=== PATIENT | female | born 1990 | race Caucasian/White ===

== ENCOUNTER 2020-03-14 14:56 | Emergency (ER) | payer BC ==
[~2020-03-14] VITALS: Ht 165.1 cm; Wt 83.9 kg
--- OUTSIDE RECORDS SUMMARY | 2020-03-14 14:58 | XMS REPORT | Summary of Care ---
Author Author [facility] Address [address] [place] [address] Phone Unavailable Care Team Providers Care Trim Crew Supervisor Name Role Phone YOLANDA CHÁVEZ, RONNIE GARCIA Unavailable Unavailable SADE DIAZ MD Unavailable Unavailable YOLANDA Escoto, RONNIE Wilkerson Unavailable Unavailable Unavailable Functional Status Name Dates Details Functional status health issues are not documented Status: Name Dates Details Cognitive status health issues are not d ocumented Status: Problems Name Dates Details Tachycardia (785.0, R00.0) Status: Active Blood in urine (599.70, R31.9) Status: Active Elevated blood pressure reading (796.2, R03.0) Status: Active Obesity (BMI 30-39.9) (278.00, E66.9) Status: Active Medications Name Dates Details Medications not documented Allergies and Adverse Reactions Name Dates Details Gentamicin Sulfate SOLN (Allergy) Status : Active Past Medical History Name Dates Details History of Infection Of A Kidney (590.9) Status: Resolved Personal history of urinary tract infect ion (V13.02, Z87.440) Status: Resolved Procedures Procedure Dates Details [QL] CBC (INCLUDES DIFF/PLT) Date: 10-Mar-2020 [QL] CMP W/EGFR Date: 10-Mar-2020 [QL] URINALYSIS, COMPLETE W/REFLEX TO CULTURE Date: 020 CT Abdomen/Pelvis w contrast 37010 Date: 10-Mar-2020 Immunization Name Dates Details Immunizations not documented Social History Name Dates Details - Status: Name Dates Details Never smoked tobacco (finding) Vital Signs Date Test Result Details [id number] Systolic blood pressure 134 mm[Hg] Status: Comments : Location: LUE; Position: Sitting Diastolic blood pressure 88 mm[Hg] Status: Comment s: Location: LUE; Position: Sitting Body height 65 in Status: Weight 188.3125 lb Status: Body mass index (BMI) [Ratio] 31.34 kg/m2 Status: Body surface area Derived from formula 1.93 m2 S tatus: Body temperature 97.8 f Status: Comments: Me thod: Temporal Heart Rate 120 /min Status: Respiratory rate 16 /min Status: Results Date Description Value Details [id number] [O] Urine Dipstick (In Office) Glucose Normal (Normal) LEUKOCYTES + (Abnormal) NITRITE Negative (Normal) UROBILINOGEN Normal (Normal) PROTEIN ++100 (Abnormal) pH 5 (Normal) URINE BLOOD +250 (Abnormal) SPECIFIC GRAVITY 1.025 (Normal) KETONES Negative (Normal) BILIRUBIN Negative (Normal) COLOR URINE Red (Abnormal) APPEARANCE Cloudy (Abnormal) 16-[id number]:01 [O] Urine Test (in office) Test, Urine Negative (Normal ) Plan of Care Name Dates Details Planned Observations Planned Goals not documented Planned Encounters Appointment; SADE DIAZ M.D. On: 25-Mar-2020 14:00 Instructions Name Dates Details Instructions not documented Encounters Appointment; SADE DIAZ M.D. Encounter Diagnosis: Problem not documented On: 10-Mar-2020 14:00
--- OUTSIDE RECORDS SUMMARY | 2020-03-14 14:58 | XMS REPORT | Summary of Care ---
Author Author ARA DIAZ M.D. Organization Unknown Address Unknown Phone Unavailable Care Team Providers Care Casino Cage Supervisor Name Role Phone SADE DIAZ M.D. Unavailable Unavailable RONNIE LUEVANO MD Unavailable Unavailable SADE DIAZ MD Unavailable Unavailable RONNIE GUERRERO M.D. Unavailable Unavailable Unavailable Functional Status Name Dates [...] CULTURE Date: 020 CT Abdomen/Pelvis w contrast 72604 Date: 10-Mar-2020 Immunization Name Dates Details Immunizations not documented Social History Name Dates Details - Status: Name Dates Details Never smoked tobacco (finding) Vital Signs Date Test Result Details [id number] Systolic blood pressure 134 mm[Hg] Status: Comments [...] /min Status: Results Date Description Value Details [id number] [O] Urine Dipstick (In Office) Glucose Normal (Normal) LEUKOCYTES + (Abnormal) NITRITE Negative (Normal) UROBILINOGEN Normal (Normal) PROTEIN ++100 (Abnormal) pH 5 (Normal) URINE BLOOD +250 (Abnormal) SPECIFIC GRAVITY 1.025 (Normal) KETONES Negative (Normal) BILIRUBIN Negative (Normal) COLOR URINE Red (Abnormal) APPEARANCE Cloudy (Abnormal) 77-[id number]:01 [O] Urine Test (in office) Test, Urine Negative (Normal ) Plan of Care Name Dates Details Planned Observations Planned Goals not documented Planned Encounters Appointment; SADE DIAZ M.D. On: 25-Mar-2020 14:00 Interventions Provided Labs/Procedures/Imaging* [QL] CBC (INCLUDES DIFF/PLT); To Be Done: 10 Mar 2020 * [QL] CMP W/EGFR; To Be Done: 10 Mar 2020 * [QL] URINALYSIS, COMPLETE W/REFLEX TO CULTURE; To Be Done: 10 Mar 2020 * CT Abdomen/Pelvis w contrast 15589; To Be Done: 10 Mar 2020 * [O] Urine Test (in office); Done: 10 Mar 2020 * [O] Urine Dipstick (In Office); Done: 10 Mar 2020 * Tobacco Use Screening; Done: 10 Mar 2020 Plan* check cbc, cmp * CT abd and pelvis * ER precautions * Low salt, low fat, high fiber, healthy diet * Monitor blood pressure at home, bring log to next visit * If blood pressure persistently over 140/90 or less then 100/50 or symptomatic, please seek early or ER care * Please seek early care if not getting better or getting worse or new change in condition. * Return to clinic in 2 weeks, sooner if needed * Please seek early care if not getting better or getting worse or new change in condition * Please call us back if you don't hear from the office about your labs, imaging or referral in a week. Instructions Name Dates Details Instructions not documented Encounters Appointment; SADE DIAZ M.D. Encounter Diagnosis: Problem not documented On: 10-Mar-2020 14:00
--- OUTSIDE RECORDS SUMMARY | 2020-03-14 14:58 | XMS REPORT | Summary of Care ---
Author Author [facility] Address [address] [place] [address] Phone Unavailable Care Team Providers Care Clinical Athletic Instructor Name Role Phone YOLANDA CHÁVEZ, RONNIE GARCIA [...] Date: 10-Mar-2020 [QL] CMP W/EGFR Date: 10-Mar-2020 CT Abdomen/Pelvis w contrast [id number] Date: 10-Mar-2020 Immunization Name Dates Details Immunizations not documented Social History Name Dates Details - Status: Name Dates Details Never smoked tobacco (finding) Vital Signs Date Test Result Details [id number] Systolic blood pressure 134 mm[Hg] Status: Comments [...] /min Status: Results Date Description Value Details [id number]:[id number] [O] Urine Dipstick (In Office) Glucose Normal (Normal) LEUKOCYTES + (Abnormal) NITRITE Negative (Normal) UROBILINOGEN Normal (Normal) PROTEIN ++100 (Abnormal) pH 5 (Normal) URINE BLOOD +250 (Abnormal) SPECIFIC GRAVITY 1.025 (Normal) KETONES Negative (Normal) BILIRUBIN Negative (Normal) COLOR URINE Red (Abnormal) APPEARANCE Cloudy (Abnormal) [id number]:01 [O] Urine Test (in office) Test, Urine Negative (Normal ) Plan of Care Name Dates Details Planned Observations Planned Goals not documented Planned Encounters Appointment; SADE DIAZ M.D. On: 25-Mar-2020 14:00 Instructions Name Dates Details Instructions not documented Encounters Appointment; SADE DIAZ M.D. Encounter Diagnosis: Problem not documented On: 10-Mar-2020 14:00
--- OUTSIDE RECORDS SUMMARY | 2020-03-14 14:58 | XMS REPORT | Summary of Care ---
Author Author ARA DIAZ M.D. Organization Unknown Address Unknown Phone Unavailable Care Team Providers Care Teaching Pastor Name Role Phone SADE DIAZ M.D. Unavailable Unavailable YOLANDA DUMONT GA, RONNIE GARCIA Unavailable Unavailable SADE DIAZ MD [...] W/EGFR Date: 10-Mar-2020 CT Abdomen/Pelvis w contrast 39404 Date: 10-Mar-2020 Immunization Name Dates Details Immunizations not documented Social History Name Dates Details - Status: Name Dates Details Never smoked tobacco (finding) Vital Signs Date Test Result Details [id number] Systolic blood pressure 134 mm[Hg] Status: Comments [...] /min Status: Results Date Description Value Details [id number] [O] Urine Dipstick (In Office) Glucose Normal (Normal) LEUKOCYTES + (Abnormal) NITRITE Negative (Normal) UROBILINOGEN Normal (Normal) PROTEIN ++100 (Abnormal) pH 5 (Normal) URINE BLOOD +250 (Abnormal) SPECIFIC GRAVITY 1.025 (Normal) KETONES Negative (Normal) BILIRUBIN Negative (Normal) COLOR URINE Red (Abnormal) APPEARANCE Cloudy (Abnormal) Plan of Care Name Dates Details Planned Observations Planned Goals not documented Planned Encounters Appointment; SADE DIAZ M.D. On: 25-Mar-2020 14:00 Interventions Provided Labs/Procedures/Imaging* [QL] CBC (INCLUDES DIFF/PLT); To Be Done: 10 Mar 2020 * [QL] CMP W/EGFR; To Be Done: 10 Mar 2020 * CT Abdomen/Pelvis w contrast [id number]; To Be Done: 10 Mar 2020 * [...]
--- OUTSIDE RECORDS SUMMARY | 2020-03-14 14:58 | XMS REPORT ---
Author Author [facility] Organization [facility] Address Unknown Phone Unavailable Care Team Providers Care Agricultural Labor Camp Manager Name Role Phone SADE DIAZ M.D. Unavailable Unavailable Problems Condition Name Condition Details Condition Category Status Onset Date Resolution Date Last Treatment Date Treating Clinician Comments History of Infection Of A Kidney History of Infection Of A Kidne y Problem Resolved Personal history of urinary tract infection Personal h istory of urinary tract infection Problem Resolved Tachycardia Tachycardia Problem Active Blood in urine Blood in urine Problem Active Elevated blood pressure reading Elevated blood pressure reading Pro blem Active Obesity (BMI 30-39.9) Obesity (BMI 30-39.9) Problem Active Allergies, Adverse Reactions, Alerts Allergy Name Allergy Type Status Severity Reaction(s) Onset Date Inacti ve Date Treating Clinician Comments Gentamicin Sulfate SOLN Allergy to drug (finding) Active Medications This patient has no known medications. Vital Signs Vital Name Observation Time Observation Value Comments Systolic blood pressure 2020-03-10 14:23:00 134 mm[Hg] Loca tion: LUE; Position: Sitting Diastolic blood pressure 2020-03-10 14:23:00 88 mm[Hg] Loc ation: LUE; Position: Sitting Body height 2020-03-10 14:23:00 65 [in_us] Weight 2020-03-10 14:23:00 188.3125 [lb_av] Body temperature 2020-03-10 14:23:00 97.8 [degF] Method: Tem poral Heart Rate 2020-03-10 14:23:00 120 /min Respiratory rate 2020-03-10 14:23:00 16 /min Procedures and Interventions Procedure Date / Time Performed Performing Clinici an [QL] CBC (INCLUDES DIFF/PLT) 2020-03-10 00:00:00 [QL] CMP W/EGFR 2020-03-10 00:00:00 CT Abdomen/Pelvis w contrast [id number] 2020-03-10 00:00:00 [QL] URINALYSIS, COMPLETE W/REFLEX TO CULTURE 2020-03-10 00: 00:00 Encounters Start Date/Time End Date/Time Encounter Type Admission Type [facility] Care Department Encounter ID 2020-03-10 14:00:00 2020-03-10 14:00:00 Appointment; SADE DIAZ M.D. SATTAR, BEENA, M.D. [facility] [id number] Results Test Description Test Time Test Comments Text Results Atomic Results Result Comments CT Abdomen/Pelvis w contrast [id number] 2020-03-13 12:55:00 Radiation Dose CTDIVOL = 0 (mGy): DLP = 912.5 (mGy-cm)PROCEDURE INFORMATION:Exam: CT Abdomen And Pelvis With ContrastExam date and time: 03/13/2020 1:25 PMAge: 29 years oldClinical indication: Hematuria, unspecified; Additional info: /hematuria, h/[place] renal reflux as a childTECHNIQUE:Imaging protocol: Computed tomography of the abdomen and pelvis withintravenous contrast.Radiation optimization: All CT scans at this facility use at least one of thesedose optimization techniques: automated exposure control; mA and/or kVadjustment per patient size (includes targeted exams where dose is matched toclinical indication); or iterative reconstruction.Contrast material: OMNIPAQUE; Contrast volume: 100 ml; Contrast route: RTFOREARM; COMPARISON:No relevant prior studies available.RADIATION DOSE METRICS:Total DLP: 912.5 mGy-cmFINDINGS:Lungs: There is a 1 cm nodule in the right middle lobe, most likely nodularscarring or atelectasis, however true pulmonary nodule also possible. Thiscould also reflect a small consolidation. Recommend dedicated chest CT.Liver: There is hepatic steatosis.Gallbladder and bile ducts: Normal. No calcified stones. Pancreas: Normal.Spleen: There is a sub 5 mm low-density lesion in the spleen, too small tocharacterize.Adrenals: Normal.Kidneys and ureters: There is an obstructing 4 mm stone in the proximal leftureter. Mild left hydronephrosis. Additional 3 mm nonobstructing right re nalstone.Stomach and bowel: The lack of oral contrast limits assessment of the hollowviscus. No significant small bowel distension. The visualized colon is withinnormal limits.Appendix: No evidence of appendicitis.Intraperitoneal space: Trace amount of free pelvic fluid, presumablyphysiologic.Vasculature: Unremarkable. No abdominal aortic aneurysm.Lymph nodes: Unremarkable. No enlarged lymph nodes.Bladder: Unremarkable as visualized.Reproductive: Unremarkable as visualized.Bones/joints: No acute osseous abnormality.Soft tissues: Unremarkable.IMPRESSION:1. Obstructing 4 mm stone in the proximal left ureter. Mild lefthydronephrosis. Additional non-obstructing 3 mm right renal stone.2. Right middle lobe nodule measures 1 cm, most likely nodular scarring oratelectasis. However, this could also reflect a nodule or small consolidation.Consider dedicated chest CT.Dante Lindsay MD On 03/13/2020 16:36:48; [id number]--Acxy by: Dante Lindsay MDDictated Date/time: 03/13/20 16:36Electronically Signed by: Dante Lindsay MD 03/13/2016:36FINAL REPORT [QL] CMP W/EGFR 2020-03-12 08:44:00 GLUCOSE; Above High Threshold (test code = 1547-9) 101 mg/dl 65-99 Fasting reference interval For someone without known diabetes, a glucose valuebetween 100 and 125 mg/dL is consistent withprediabetes and should be confirmed with afollow-up test. UREA NITROGEN (BUN) (test code = UREA NITROGEN (BUN)) 11 mg/dl 7-25 CREATININE (test code = CREATININE) 0.86 mg/dl 0.50-1.10 eGFR NON- (test code = eGFR NON-CIERA N MALAYSIAN) 92 {ML/MIN/1.7} > OR = 60 eGFR (test code = eGFR ) 10 7 {ML/MIN/1.7} > OR = 60 BUN/CREATININE RATIO (test code = BUN/CREATININE RATIO) NOT APPL ICABLE 6-22 SODIUM (test code = SODIUM) 141 mmol/L 135-146 POTASSIUM (test code = POTASSIUM) 4.6 mmol/L 3.5-5.3 CHLORIDE (test code = CHLORIDE) 105 mmol/L 98-110 CARBON DIOXIDE (test code = CARBON DIOXIDE) 27 mmol/L 20-3 2 CALCIUM (test code = CALCIUM) 9.7 mg/dl 8.6-10.2 PROTEIN, TOTAL (test code = PROTEIN, TOTAL) 7.3 g/dl 6.1- 8.1 ALBUMIN (test code = ALBUMIN) 4.4 g/dl 3.6-5.1 GLOBULIN (test code = GLOBULIN) 2.9 {G/DL CALC} 1.9-3.7 ALBUMIN/GLOBULIN RATIO (test code = ALBUMIN/GLOBULIN RATIO) 1.5 {CALC} 1.0-2.5 BILIRUBIN, TOTAL; Normal (test code = 47161-2) 0.4 mg/dl 0 .2-1.2 ALKALINE PHSPHATASE (test code = ALKALINE PHSPHATASE) 46 u/l 31-125 AST; Normal (test code = 1916-6) 19 u/l 10-30 ALT; Normal (test code = 1742-6) 21 u/l 6-29 [QL] CBC (INCLUDES DIFF/PLT)2020-03-12 08:44:00* Test Item Value Reference Range Comments WHITE BLOOD CELL COUNT (test code = WHITE BLOOD CELL COUNT) 5.4 {Thousand/u} 3.8-10.8 RED BLOOD CELL COUNT (test code = RED BLOOD CELL COUNT) 4.49 {Million/uL} 3.80-5.10 HEMAGLOBIN; Normal (test code = 82882-4) 13.1 g/dl 11.7-15 .5 HEMATOCRIT; Normal (test code = 4544-3) 40.1 % 35.0-45. 0 MCV; Normal (test code = 787-2) 89.3 fL 80.0-100.0 MCHC; Normal (test code = 06141-7) 32.7 g/dl 32.0-36.0 RDW; Normal (test code = 788-0) 12.5 % 11.0-15.0 PLATELET COUNT; Normal (test code = 777-3) 306 {Thousand/u} 140- 400 MPV; Normal (test code = 73533-2) 10.0 fL 7.5-12.5 ABSOLUTE NEUTROPHILS (test code = ABSOLUTE NEUTROPHILS) 2500 {cells/uL} 5373-9916 ABSOLUTE LYMPHOCYTES (test code = ABSOLUTE LYMPHOCYTES) 2209 {cells/uL} 850-3900 ABSOLUTE MONOCYTES (test code = ABSOLUTE MONOCYTES) 454 {cells/u L} 200-950 ABSOLUTE EOSINOPHILS (test code = ABSOLUTE EOSINOPHILS) 200 {kathy ls/uL} 15-500 ABSOLUTE BASOPHILS (test code = ABSOLUTE BASOPHILS) 38 {cells/uL } 0-200 NEUTROPHILS (test code = NEUTROPHILS) 46.3 % LYMPHOCYTES (test code = LYMPHOCYTES) 40.9 % MONOCYTES; Normal (test code = 21630-5) 8.4 % EOSINOPHILS; Normal (test code = 17441-2) 3.7 % BASOPHILS; Normal (test code = 20504-0) 0.7 % [O] Urine Test (in office)2020-03-10 15:01:00* Test Item Value Reference Range Comments Test, Urine; Normal (test code = 2106-3) Negative [O] Urine Dipstick (In Office)2020-03-10 14:25:00* Test Item Value Reference Range Comments Glucose (test code = Glucose) Normal LEUKOCYTES (test code = LEUKOCYTES) + NITRITE; Normal (test code = 27147-5) Negative UROBILINOGEN; Normal (test code = 62538-4) Normal PROTEIN; Abnormal (test code = 28353-2) ++100 pH (test code = pH) 5 URINE BLOOD; Abnormal (test code = 62953-5) +250 SPECIFIC GRAVITY; Normal (test code = 2965-2) 1.025 KETONES; Normal (test code = 71230-5) Negative BILIRUBIN; Normal (test code = 12951-9) Negative COLOR URINE; Abnormal (test code = 5778-6) Red APPEARANCE; Abnormal (test code = 5767-9) Cloudy [QL] URINALYSIS, COMPLETE W/REFLEX TO [id number] 00:00:00* Test Item Value Reference Range Comments COLOR; Abnormal (test code = 5778-6) BROWN YELLOW APPEARANCE (test code = APPEARANCE) CLOUDY CLEAR SPECIFIC GRAVITY; Normal (test code = 2965-2) 1.030 1. 001-1.035 PH; Normal (test code = 2756-5) 6.0 5.0-8.0 GLUCOSE; Normal (test code = 1547-9) NEGATIVE NEGATIVE BILIRUBIN; Normal (test code = 82260-9) NEGATIVE NEGATIVE KETONES; Normal (test code = 03531-6) NEGATIVE NEGATIVE OCCULT BLOOD; Abnormal (test code = 26284-9) 3+ NEG ATIVE PROTEIN; Abnormal (test code = 00082-3) 2+ NEGATIVE NITRITE (test code = NITRITE) NEGATIVE NEGATIVE LEUKOCYTE ESTERASE (test code = LEUKOCYTE ESTERASE) TRACE NEGATIVE WBC; Abnormal (test code = 6690-2) 6-10 < OR = 5 RBC; Abnormal (test code = 789-8) 40-60 < OR = 2 SQUAMOUS EPITHELIAL CELLS; Abnormal (test code = 43467-8) 10-20 < OR = 5 BACTERIA; Abnormal (test code = 630-4) FEW NONE SEEN HYALINE CAST; Normal (test code = 15111-6) NONE SEEN NONE SEEN NOTE (test code = NOTE) See Below This uri ne was analyzed for the presence of WBC, RBC, bacteria, casts, and other formed elements. Only those elements seen were reported. [Q] REFLEXIVE URINE [id number] 00:00:00* Test Item Value Reference Range Comments REFLEXIVE URINE CULTURE (test code = REFLEXIVE URINE C ULTURE) CULTURE INDICATED - RESULTS TO FOLLOW [QL] CULTURE, URINE, [id number] 00:00:00* Test Item Value Reference Range Comments CULTURE (test code = CULTURE) See Comment CU LTURE, URINE, ROUTINE Micro Number: [id number] Test Status: Final Specimen Source: URINE Specimen Quality: Adequate Result: Three or more organisms present, each greater than 10,000 CFU/mL. May represent normal yessi contamination from external genitalia. No further testing is required.
--- OUTSIDE RECORDS SUMMARY | 2020-03-14 14:58 | XMS REPORT | Summary of Care ---
Author Author [facility] Address [address] [place] [address] Phone Unavailable Care Team Providers Care Skidder Lever Operator Name Role Phone YOLANDA CHÁVEZ, RONNIE GARCIA [...] W/EGFR Date: 10-Mar-2020 CT Abdomen/Pelvis w contrast 95183 Date: 10-Mar-2020 Immunization Name Dates Details Immunizations not documented Social History Name Dates Details - Status: Name Dates Details Never smoked tobacco (finding) Vital Signs Date Test Result Details 93-[id number]:23 Systolic blood pressure 134 mm[Hg] Status: Comments [...] /min Status: Results Date Description Value Details 43-Nnn-936413:25 [O] Urine Dipstick (In Office) Glucose Normal (Normal) LEUKOCYTES + (Abnormal) NITRITE Negative (Normal) UROBILINOGEN Normal (Normal) PROTEIN ++100 (Abnormal) pH 5 (Normal) URINE BLOOD +250 (Abnormal) SPECIFIC GRAVITY 1.025 (Normal) KETONES Negative (Normal) BILIRUBIN Negative (Normal) COLOR URINE Red (Abnormal) APPEARANCE Cloudy (Abnormal) 71-Alq-524315:01 [O] Urine Test (in office) Test, Urine Negative (Normal ) Plan of Care Name Dates Details Planned Observations Planned Goals not documented Planned Encounters Appointment; SADE DIAZ M.D. On: 25-Mar-2020 14:00 Instructions Name Dates Details Instructions not documented Encounters Appointment; SADE DIAZ M.D. Encounter Diagnosis: Problem not documented On: 10-Mar-2020 14:00
--- OUTSIDE RECORDS SUMMARY | 2020-03-14 14:58 | XMS REPORT | Summary of Care ---
Author Author [facility] Address [address] [place] [address] Phone Unavailable Care Team Providers Care Instructional Supervisor Name Role Phone YOLANDA CHÁVEZ, RONNIE GARCIA Unavailable Unavailable SADE DIAZ MD Unavailable Unavailable YOLANDA Escoto, RONNIE Wilkerson Unavailable Unavailable Unavailable Functional Status Name Dates Details Functional status health issues are not documented Status: Name Dates Details Cognitive status health issues are not d ocumented Status: Problems Name Dates Details Blood in urine (599.70, R31.9) Status: Active Tachycardia (785.0, R00.0) Status: Active Obesity (BMI 30-39.9) (278.00, E66.9) Status: Active Elevated blood pressure reading (796.2, R03.0) Status: Active Medications Name Dates Details Medications [...] W/EGFR Date: 10-Mar-2020 CT Abdomen/Pelvis w contrast 81224 Date: 10-Mar-2020 Immunization Name Dates Details Immunizations not documented Social History Name Dates Details - Status: Name Dates Details Never smoked tobacco (finding) Vital Signs Date Test Result Details [id number] Systolic blood pressure 134 mm[Hg] Status: Comments [...] /min Status: Results Date Description Value Details :25 [O] Urine Dipstick (In Office) Glucose Normal (Normal) LEUKOCYTES + (Abnormal) NITRITE Negative (Normal) UROBILINOGEN Normal (Normal) PROTEIN ++100 (Abnormal) pH 5 (Normal) URINE BLOOD +250 (Abnormal) SPECIFIC GRAVITY 1.025 (Normal) KETONES Negative (Normal) BILIRUBIN Negative (Normal) COLOR URINE Red (Abnormal) APPEARANCE Cloudy (Abnormal) :01 [O] Urine Test (in office) Test, Urine Negative (Normal ) : [QL] URINALYSIS, COMPLETE W/REFLEX TO CU LTURE COLOR BROWN (Abnormal) Range: YELLOW APPEARANCE CLOUDY (Abnormal) Range: CLEAR SPECIFIC GRAVITY 1.030 (Normal) Range: 1.001-1 .035 PH 6.0 (Normal) Range: 5.0-8.0 GLUCOSE NEGATIVE (Normal) Range: NEGAT VINOD BILIRUBIN NEGATIVE (Normal) Range: NEGAT VINOD KETONES NEGATIVE (Normal) Range: NEGAT VINOD OCCULT BLOOD 3+ (Abnormal) Range: NEGATIVE PROTEIN 2+ (Abnormal) Range: NEGATIVE NITRITE NEGATIVE (Normal) Range: NEGAT VINOD LEUKOCYTE ESTERASE TRACE (Abnormal) Range: NEG ATIVE WBC 6-10 {/HPF} (Abnormal) Range: < OR = 5 RBC 40-60 {/HPF} (Abnormal) Range: < OR = 2 SQUAMOUS EPITHELIAL CELLS 10-20 {/HPF} (Abnorma l) Range: < OR = 5 BACTERIA FEW {/HPF} (Abnormal) Range: NO NE SEEN HYALINE CAST NONE SEEN {/LPF} (Normal) Range : NONE SEEN NOTE See Below Comments: This u rine was analyzed for the presence of WBC, RBC, bacteria, casts, and other formed elements. Only those elements seen were reported. : [Q] REFLEXIVE URINE CULTURE REFLEXIVE URINE CULTURE CULTURE INDICATE D - RESULTS TO FOLLOW [QL] CULTURE, URINE, ROUTINE CULTURE Comments: LIBERTY E, URINE, ROUTINE Micro Number: [id number] Test Status: Final Specimen Source: URINE Specimen Quality: Adequate Result: Three or more organisms present, each greater than 10,000 CFU/mL. May represent normal yessi contamination from external genitalia. No further testing is required. :44 [QL] CMP W/EGFR GLUCOSE 101 mg/dl (Above high threshold ) Range: 65-99 Comments: Fasting reference interval For someone without known diabetes, a glucose valuebetween 100 and 125 mg/dL is consistent withprediabetes and should be confirmed with afollow-up test. UREA NITROGEN (BUN) 11 mg/dl (Normal) Range: 7- 25 CREATININE 0.86 mg/dl (Normal) Range: 0.50 -1.10 eGFR NON- 92 {ML/MIN/1.7} (Norm al) Range: > OR = 60 eGFR 107 {ML/MIN/1.7} (Normal) Range: > OR = 60 BUN/CREATININE RATIO NOT APPLICABLE {CALC} Rang e: 6-22 SODIUM 141 mmol/L (Normal) Range: 135- 146 POTASSIUM 4.6 mmol/L (Normal) Range: 3.5- 5.3 CHLORIDE 105 mmol/L (Normal) Range: 98-1 10 CARBON DIOXIDE 27 mmol/L (Normal) Range: 20-32 CALCIUM 9.7 mg/dl (Normal) Range: 8.6-1 0.2 PROTEIN, TOTAL 7.3 g/dl (Normal) Range: 6.1-8. 1 ALBUMIN 4.4 g/dl (Normal) Range: 3.6-5. 1 GLOBULIN 2.9 {G/DL__CALC} (Normal) Range : 1.9-3.7 ALBUMIN/GLOBULIN RATIO 1.5 {CALC} (Normal) Rang e: 1.0-2.5 BILIRUBIN, TOTAL 0.4 mg/dl (Normal) Range: 0.2- 1.2 ALKALINE PHSPHATASE 46 u/l (Normal) Range: 31-1 25 AST 19 u/l (Normal) Range: 10-30 ALT 21 u/l (Normal) Range: 6-29 :44 [QL] CBC (INCLUDES DIFF/PLT) Comments: REPORT COMMENT:FASTING:YES WHITE BLOOD CELL COUNT 5.4 {Thousand/u} (Normal ) Range: 3.8-10.8 RED BLOOD CELL COUNT 4.49 {Million/uL} (Normal) Range: 3.80-5.10 HEMAGLOBIN 13.1 g/dl (Normal) Range: 11.7- 15.5 HEMATOCRIT 40.1 % (Normal) Range: 35.0-45. 0 MCV 89.3 fL (Normal) Range: 80.0-10 0.0 MCH 29.2 pg (Normal) Range: 27.0-33 .0 MCHC 32.7 g/dl (Normal) Range: 32.0- 36.0 RDW 12.5 % (Normal) Range: 11.0-15. 0 PLATELET COUNT 306 {Thousand/u} (Normal) Range : 140-400 MPV 10.0 fL (Normal) Range: 7.5-12. 5 ABSOLUTE NEUTROPHILS 2500 {cells/uL} (Normal) R golden: 5885-3039 ABSOLUTE LYMPHOCYTES 2209 {cells/uL} (Normal) R golden: 850-3900 ABSOLUTE MONOCYTES 454 {cells/uL} (Normal) Rang e: 200-950 ABSOLUTE EOSINOPHILS 200 {cells/uL} (Normal) Ra nge: 15-500 ABSOLUTE BASOPHILS 38 {cells/uL} (Normal) Range : 0-200 NEUTROPHILS 46.3 % (Normal) LYMPHOCYTES 40.9 % (Normal) MONOCYTES 8.4 % (Normal) EOSINOPHILS 3.7 % (Normal) BASOPHILS 0.7 % (Normal) Plan of Care Name Dates Details Planned Observations Planned Goals not documented Planned Encounters Appointment; SADE DIAZ M.D. On: 25-Mar-2020 14:00 Instructions Name Dates Details Instructions not documented Encounters Appointment; SADE DIAZ M.D. Encounter Diagnosis: Problem not documented On: 10-Mar-2020 14:00
--- OUTSIDE RECORDS SUMMARY | 2020-03-14 14:58 | XMS REPORT | Summary of Care ---
Author Author ARA Olvera M.A. Organization Unknown Address [facility] Phone Unavailable Care Team Providers Care Staff Physician Name Role Phone SADE DIAZ M.D. Unavailable Unavailable YOLANDA DUMONT [place], RONNIE GARCIA Unavailable Unavailable SADE DIAZ MD Unavailable Unavailable RONNIE GUERRERO M.D. Unavailable Unavailable Unavailable Functional Status Name Dates Details Functional status health issues are not documented Status: Name Dates Details Cognitive status health issues are not d ocumented Status: Problems Name Dates Details Laceration Of Upper Arm (880.03) Status: Active Tachycardia (785.0, R00.0) Status: Active Sinusitis, acute maxillary (461.0, J01.0 0) Status: Active Pharyngitis, acute (462, J02.9) Status: Active Sinusitis (473.9, J32.9) Status: Active Acute tonsillitis (463, J03.90) Status: Active Vaginitis (616.10, N76.0) Status: Active Chronic tonsillitis (474.00, J35.01) Status: Active Influenza (487.1, J11.1) Status: Active Upper respiratory infection (465.9, J06. 9) Status: Active Viral gastroenteritis (008.8, A08.4) Status: Active Blood in urine (599.70, R31.9) Status: Active Medications Name Dates Details Medications not documented Allergies and Adverse Reactions Name Dates Details Gentamicin Sulfate SOLN (Allergy) Status : Active Past Medical History Name Dates Details History of Infection Of A Kidney (590.9) Status: Resolved Personal history of urinary tract infect ion (V13.02, Z87.440) Status: Resolved Procedures Procedure Dates Details Procedures not documented Immunization Name Dates Details Immunizations not documented Social History Name Dates Details - Status: Name Dates Details Never smoked tobacco (finding) Vital Signs Date Test Result Details 79-Bpc-108207:23 Systolic blood pressure 134 mm[Hg] Status: Comments : Location: E; Position: Sitting Diastolic blood pressure 88 mm[Hg] Status: Comment s: [place] [facility] [place] Position: Sitting Body height 65 in Status: Weight 188.3125 lb Status: Body mass index (BMI) [Ratio] 31.34 kg/m2 Status: Body surface area Derived from formula 1.93 m2 S tatus: Body temperature 97.8 f Status: Comments: Me thod: Temporal Heart Rate 120 /min Status: Respiratory rate 16 /min Status: Results Date Description Value Details 05-Uji-220619:25 [O] Urine Dipstick (In Office) Glucose Normal (Normal) LEUKOCYTES + (Abnormal) NITRITE Negative (Normal) UROBILINOGEN Normal (Normal) PROTEIN ++100 (Abnormal) pH 5 (Normal) URINE BLOOD +250 (Abnormal) SPECIFIC GRAVITY 1.025 (Normal) KETONES Negative (Normal) BILIRUBIN Negative (Normal) COLOR URINE Red (Abnormal) APPEARANCE Cloudy (Abnormal) Plan of Care Name Dates Details Planned Observations Planned Goals not documented Interventions Provided Labs/Procedures/Imaging* [O] Urine Dipstick (In Office); Done: 10 Mar 2020 Instructions Name Dates Details Instructions not documented Encounters Appointment; SADE DIAZ M.D. Encounter Diagnosis: Problem not documented On: 10-Mar-2020 14:00
--- OUTSIDE RECORDS SUMMARY | 2020-03-14 14:58 | XMS REPORT | Summary of Care ---
Author Author ARA DIAZ M.D. Organization Unknown Address Unknown Phone Unavailable Care Team Providers Care Aviation Medicine Specialist Name Role Phone YOLANDA CHÁVEZ, RONNIE GARCIA Unavailable Unavailable SADE IDAZ MD Unavailable Unavailable YOLANDA Escoto, RONNIE Wilkerson [...] W/EGFR Date: 10-Mar-2020 CT Abdomen/Pelvis w contrast 43705 Date: 10-Mar-2020 Immunization Name Dates Details Immunizations not documented Social History Name Dates Details - Status: Name Dates Details Never smoked tobacco (finding) Vital Signs Date Test Result Details 52-[id number]:23 Systolic blood pressure 134 mm[Hg] Status: Comments [...] (in office) Test, Urine Negative (Normal ) :00 [QL] URINALYSIS, COMPLETE W/REFLEX TO CU LTURE [...] elements. Only those elements seen were reported. :00 [Q] REFLEXIVE URINE CULTURE REFLEXIVE URINE CULTURE CULTURE INDICATE D - RESULTS TO FOLLOW [QL] CULTURE, URINE, ROUTINE CULTURE Comments: LIBERTY E, URINE, ROUTINE Micro Number: [id number] Test Status: Final Specimen Source: URINE Specimen [...] 10-30 ALT 21 u/l (Normal) Range: 6-29 58-Not-42993:44 [QL] CBC (INCLUDES DIFF/PLT) Comments: REPORT COMMENT:FASTING:YES [...] ABSOLUTE NEUTROPHILS 2500 {cells/uL} (Normal) R golden: 5038-7318 ABSOLUTE LYMPHOCYTES 2209 {cells/uL} (Normal) R golden: [...] DIAZ M.D. On: 25-Mar-2020 14:00 Interventions Provided Discussion/Summary* pls inform pt cbc, cmp stable, urine shows blood, several skin cells--c/s contaminant. * please check how she is doing. and whwn is the CT planned?? repeat ua mid stream clean catch Instructions Name Dates Details Instructions not documented Encounters Appointment; SADE DIAZ M.D. Encounter Diagnosis: Problem not documented On: 10-Mar-2020 14:00
--- OUTSIDE RECORDS SUMMARY | 2020-03-14 14:58 | XMS REPORT | Summary of Care ---
Author ARA López M.A. Organization Unknown Address [facility] Phone Unavailable Care Team Providers Care Diploma Maker Name Role Phone SADE DIAZ M.D. Unavailable Unavailable YOLANDA DUMONT [place], RONNIE GARCIA Unavailable Unavailable SADE DIAZ MD [...] CULTURE Date: 020 CT Abdomen/Pelvis w contrast 89056 Date: 10-Mar-2020 Immunization Name Dates Details Immunizations not documented Social History Name Dates Details - Status: Name Dates Details Never smoked tobacco (finding) Vital Signs Date Test Result Details 66-[id number]:23 Systolic blood pressure 134 mm[Hg] Status: Comments [...] /min Status: Results Date Description Value Details 32-Frr-622470:25 [O] Urine Dipstick (In Office) Glucose Normal (Normal) LEUKOCYTES + (Abnormal) NITRITE Negative (Normal) UROBILINOGEN Normal (Normal) PROTEIN ++100 (Abnormal) pH 5 (Normal) URINE BLOOD +250 (Abnormal) SPECIFIC GRAVITY 1.025 (Normal) KETONES Negative (Normal) BILIRUBIN Negative (Normal) COLOR URINE Red (Abnormal) APPEARANCE Cloudy (Abnormal) 19-Sau-183254:01 [O] Urine Test (in office) Test, Urine [...] Mar 2020 * CT Abdomen/Pelvis w contrast 54865; To Be Done: 10 Mar 2020 * [...]
--- OUTSIDE RECORDS SUMMARY | 2020-03-14 14:58 | XMS REPORT | Summary of Care ---
Author Author [facility] Address [address] [place] [address] Phone Unavailable Care Team Providers Care Learning Center Instructor Name Role Phone YOLANDA CHÁVEZ, RONNIE [...] W/EGFR Date: 10-Mar-2020 CT Abdomen/Pelvis w contrast 65371 Date: 10-Mar-2020 Immunization Name Dates Details Immunizations not documented Social History Name Dates Details - Status: Name Dates Details Never smoked tobacco (finding) Vital Signs Date Test Result Details 95-Xok-067094:23 Systolic blood pressure 134 mm[Hg] Status: Comments [...] /min Status: Results Date Description Value Details 24-Wxh-984524:25 [O] Urine Dipstick (In Office) Glucose Normal (Normal) LEUKOCYTES + (Abnormal) NITRITE Negative (Normal) UROBILINOGEN Normal (Normal) PROTEIN ++100 (Abnormal) pH 5 (Normal) URINE BLOOD +250 (Abnormal) SPECIFIC GRAVITY 1.025 (Normal) KETONES Negative (Normal) BILIRUBIN Negative (Normal) COLOR URINE Red (Abnormal) APPEARANCE Cloudy (Abnormal) 08-Xid-041633:01 [O] Urine Test (in office) Test, Urine Negative (Normal ) Plan of Care Name Dates Details Planned Observations Planned Goals not documented Planned Encounters Appointment; SADE DIAZ M.D. On: 25-Mar-2020 14:00 Instructions Name Dates Details Instructions not documented Encounters Appointment; SADE DIAZ M.D. Encounter Diagnosis: Problem not documented On: 10-Mar-2020 14:00
--- OUTSIDE RECORDS SUMMARY | 2020-03-14 14:59 | XMS REPORT | Summary of Care ---
Author Author [facility] Address [address] [place] [address] Phone Unavailable Care Team Providers Care Arabic Translator Name Role Phone YOLANDA CHÁVEZ, RONNIE GARCIA [...] W/EGFR Date: 10-Mar-2020 CT Abdomen/Pelvis w contrast 55814 Date: 10-Mar-2020 Immunization Name Dates Details Immunizations not documented Social History Name Dates Details - Status: Name Dates Details Never smoked tobacco (finding) Vital Signs Date Test Result Details 64-Zfo-193997:23 Systolic blood pressure 134 mm[Hg] Status: Comments [...] Comments: LIBERTY E, URINE, ROUTINE Micro Number: [id number] Test Status: Final Specimen Source: URINE Specimen [...] ABSOLUTE NEUTROPHILS 2500 {cells/uL} (Normal) R golden: 0756-0113 ABSOLUTE LYMPHOCYTES 2209 {cells/uL} (Normal) R golden: 850-3900 ABSOLUTE MONOCYTES 454 {cells/uL} (Normal) Rang e: 200-950 ABSOLUTE EOSINOPHILS 200 {cells/uL} (Normal) Ra nge: 15-500 ABSOLUTE BASOPHILS 38 {cells/uL} (Normal) Range : 0-200 NEUTROPHILS 46.3 % (Normal) LYMPHOCYTES 40.9 % (Normal) MONOCYTES 8.4 % (Normal) EOSINOPHILS 3.7 % (Normal) BASOPHILS 0.7 % (Normal) 18-Ndh-651117:55 CT Abdomen/Pelvis w contrast 48280 Abdomen/Pelvis w contrast CT SEE NOTES Com ments: Radiation Dose CTDIVOL = 0 (mGy): DLP [...] chest CT.Dante Lindsay MD On 03/13/2020 16:36:48; [id number] by: Dante Lindsay MDDictated Date/time: 03/13/20 16:36Electronically Signed by: Dante Lindsay MD 03/13/2016:36FINAL REPORT Plan of Care Name Dates Details Planned Observations Planned Goals not documented Planned Encounters Appointment; SADE DIAZ M.D. On: 25-Mar-2020 14:00 Instructions Name Dates Details Instructions not documented Encounters Appointment; SADE DIAZ M.D. Encounter Diagnosis: Problem not documented On: 10-Mar-2020 14:00
--- OUTSIDE RECORDS SUMMARY | 2020-03-14 14:59 | XMS REPORT | Summary of Care ---
Author Author Teodora NORTON ARA L Organization Unknown Address Unknown Phone Unavailable Care Team Providers Care Housefellow Name Role Phone Teodora NORTONKarmen Unavailable Unavailable YOLANDA CHÁVEZ, RONNIE GARCIA Unavailable Unavailable SADE [...] W/EGFR Date: 10-Mar-2020 CT Abdomen/Pelvis w contrast 61548 Date: 10-Mar-2020 Immunization Name Dates Details Immunizations not documented Social History Name Dates Details - Status: Name Dates Details Never smoked tobacco (finding) Vital Signs Date Test Result Details [id number]-[id number]:23 Systolic blood pressure 134 mm[Hg] Status: Comments [...] Comments: LIBERTY E, URINE, ROUTINE Micro Number: [id number] Test Status: Final Specimen Source: URINE Specimen [...] ABSOLUTE NEUTROPHILS 2500 {cells/uL} (Normal) R golden: 8976-0736 ABSOLUTE LYMPHOCYTES 2209 {cells/uL} (Normal) R golden: 850-3900 ABSOLUTE MONOCYTES 454 {cells/uL} (Normal) Rang e: 200-950 ABSOLUTE EOSINOPHILS 200 {cells/uL} (Normal) Ra nge: 15-500 ABSOLUTE BASOPHILS 38 {cells/uL} (Normal) Range : 0-200 NEUTROPHILS 46.3 % (Normal) LYMPHOCYTES 40.9 % (Normal) MONOCYTES 8.4 % (Normal) EOSINOPHILS 3.7 % (Normal) BASOPHILS 0.7 % (Normal) 97-Qhv-537063:55 CT Abdomen/Pelvis w contrast 25938 Abdomen/Pelvis w contrast CT SEE NOTES Com [...] chest CT.Dante Lindsay MD On 03/13/2020 16:36:48; [id number] by: Dante Lindsay MDDictated Date/time: 03/13/20 16:36Electronically Signed by: Dante Lindsay MD 03/13/2016:36FINAL REPORT Plan of Care Name Dates Details Planned Observations Planned Goals not documented Planned Encounters Appointment; SADE DIAZ M.D. On: 25-Mar-2020 14:00 Instructions Name Dates Details Instructions not documented Encounters Appointment; SADE DIAZ M.D. Encounter Diagnosis: Problem not documented On: 10-Mar-2020 14:00
--- OUTSIDE RECORDS SUMMARY | 2020-03-14 14:59 | XMS REPORT | Summary of Care ---
Author Author ARA DIAZ M.D. Organization Unknown Address Unknown Phone Unavailable Care Team Providers Care Cognos Bi Developer Name Role Phone YOLANDA CHÁVEZ, RONNIE GARCIA [...] W/EGFR Date: 10-Mar-2020 CT Abdomen/Pelvis w contrast 21866 Date: 10-Mar-2020 Immunization Name Dates Details Immunizations not documented Social History Name Dates Details - Status: Name Dates Details Never smoked tobacco (finding) Vital Signs Date Test Result Details 19-[id number]:23 Systolic blood pressure 134 mm[Hg] Status: Comments [...] Comments: LIBERTY E, URINE, ROUTINE Micro Number: [id number] Test Status: Final Specimen Source: URINE Specimen [...] 10-30 ALT 21 u/l (Normal) Range: 6-29 24-Mrs-98717:44 [QL] CBC (INCLUDES DIFF/PLT) Comments: REPORT COMMENT:FASTING:YES [...] ABSOLUTE NEUTROPHILS 2500 {cells/uL} (Normal) R golden: 3951-7643 ABSOLUTE LYMPHOCYTES 2209 {cells/uL} (Normal) R golden: [...]
--- OUTSIDE RECORDS SUMMARY | 2020-03-14 14:59 | XMS REPORT | Summary of Care ---
Author Author ARA DIAZ M.D. Organization Unknown Address Unknown Phone Unavailable Care Team Providers Care Boat Crew Deck Hand Name Role Phone SADE DIAZ M.D. Unavailable [...] W/EGFR Date: 10-Mar-2020 CT Abdomen/Pelvis w contrast 57018 Date: 10-Mar-2020 Immunization Name Dates Details Immunizations not documented Social History Name Dates Details - Status: Name Dates Details Never smoked tobacco (finding) Vital Signs Date Test Result Details 06-[id number]:23 Systolic blood pressure 134 mm[Hg] Status: Comments [...] FOLLOW [QL] CULTURE, URINE, ROUTINE CULTURE Comments: CULTUR E, URINE, ROUTINE Micro Number: [id number] Test Status: Final Specimen Source: URINE Specimen [...] ABSOLUTE NEUTROPHILS 2500 {cells/uL} (Normal) R golden: 4421-6457 ABSOLUTE LYMPHOCYTES 2209 {cells/uL} (Normal) R golden: 850-3900 ABSOLUTE MONOCYTES 454 {cells/uL} (Normal) Rang e: 200-950 ABSOLUTE EOSINOPHILS 200 {cells/uL} (Normal) Ra nge: 15-500 ABSOLUTE BASOPHILS 38 {cells/uL} (Normal) Range : 0-200 NEUTROPHILS 46.3 % (Normal) LYMPHOCYTES 40.9 % (Normal) MONOCYTES 8.4 % (Normal) EOSINOPHILS 3.7 % (Normal) BASOPHILS 0.7 % (Normal) 46-Eig-713317:55 CT Abdomen/Pelvis w contrast 92165 Abdomen/Pelvis w contrast CT SEE NOTES Com [...] chest CT.Dante Lindsay MD On 03/13/2020 16:36:48; [id number] by: Dante Lindsay MDDictated Date/time: 03/13/20 16:36Electronically Signed by: Dante Lindsay MD 03/13/2016:36FINAL REPORT Plan of Care Name Dates Details Planned Observations Planned Goals not documented Planned Encounters Appointment; SADE DIAZ M.D. On: 25-Mar-2020 14:00 Interventions Provided Discussion/Summary* pls inform pt Ct abd and pelvis shows 1 cm right middle part lung nodule, ?atelectasis--advise Chest CT to better eval. (i'll order if she agrees) * Fatty liver, very small spot on spleen too small to know what it is, 4 mm stone obstructing left ureter, mild pressure to left kidney, also noted 3 mm nonobstructing stone on right. refer to urology for furher eval [facility] Instructions Name Dates Details Instructions not documented Encounters Appointment; SADE DIAZ M.D. Encounter Diagnosis: Problem not documented On: 10-Mar-2020 14:00
[2020-03-14] MEDS ORDERED: SODIUM CHLORIDE 0.9% 1000ML 1,000 ML IV STA (15:01)
[2020-03-14] MEDS ORDERED: KETOROLAC TROMETHAMINE 30 MG/ML VIAL IV STA (15:01)
[2020-03-14] MEDS ORDERED: ONDANSETRON HCL INJ 2MG/ML 2ML 2 MG/ML VIAL IV STA (15:01)
[2020-03-14] MEDS ORDERED: MORPHINE SULFATE INJ 4 MG/ML INJ 1ML IV STA (15:07)
[2020-03-14 15:52] LABS: BASOPHILS % 0.4 % (0.0-1.0); EOSINOPHILS # (AUTO) 0.1 (0.0-0.4); EOSINOPHILS % 1.8 % (0.0-6.0); HEMATOCRIT 41.6 % (34.2-44.1); HEMOGLOBIN 13.8 g/dL (12.0-16.0); LYMPHOCYTES % 27.7 % (18.0-39.1); MEAN CORPUSCULAR HEMOGLOBIN 29.9 pg (28-32); MEAN CORPUSCULAR HGB CONC 33.2 g/dL (31-35); MONOCYTES # (AUTO) 0.5 (0.2-0.8); MONOCYTES % 6.3 % (4.4-11.3); NEUTROPHILS # (AUTO) 4.7 (2.1-6.9); NEUTROPHILS % 63.5 % (38.7-80.0); PLATELET COUNT 286 x10e3/uL (140-360); RED BLOOD COUNT 4.62 x10e6/uL (3.6-5.1); RED CELL DISTRIBUTION WIDTH 12.5 % (11.7-14.4)
[2020-03-14 15:59] LABS: BILIRUBIN,URINE SMALL (NEGATIVE); CLARITY,URINE SL CLOUDY (CLEAR); COLOR,URINE ORANGE (YELLOW); KETONES,URINE NEGATIVE (NEGATIVE); LEUKOCYTE ESTERASE ,URINE NEGATIVE (NEGATIVE); NITRITE,URINE NEGATIVE (NEGATIVE); PREGNANCY TEST, URINE NEGATIVE (NEGATIVE); PROTEIN,URINE DIPSTICK 2+ (NEGATIVE); URINE UROBILINOGEN 0.2 mg/dL (0.2 - 1)
[2020-03-14 16:11] LABS: BACTERIA,URINE MANY /HPF; RBC,URINE 21-50 /HPF (0-5)
[2020-03-14 16:12] LABS: TRANSITIONAL EPI CELLS,URINE FEW
[2020-03-14 16:14] LABS: ALANINE AMINOTRANSFERASE 25 IU/L (0-55); ALBUMIN 4.3 g/dL (3.5-5.0); ALBUMIN/GLOBULIN RATIO 1.2 (0.8-2.0); ALKALINE PHOSPHATASE 48 IU/L (40-150); BLOOD UREA NITROGEN 10 mg/dL (7-26); BUN/CREATININE RATIO 10 (6-25); CALCIUM 9.5 mg/dL (8.4-10.2); CARBON DIOXIDE 27 mmol/L (22-29); CHLORIDE 104 mmol/L (98-107); EST GLOMERULAR FILTRATION RATE > 60 ML/MIN (60-); GLUCOSE 87 mg/dL (74-118); SODIUM 139 mmol/L (136-145)
--- NOTE | 2020-03-14 16:41 | Diagnostic Imaging Report ---
EXAM: CT Abdomen and Pelvis WITHOUT intravenous contrast INDICATION: Flank pain COMPARISON: None. TECHNIQUE: Abdomen and pelvis were scanned utilizing a multidetector helical scanner from the lung base to the pubic symphysis without administration of IV contrast. Coronal and sagittal reformations were obtained. IV CONTRAST: None ORAL CONTRAST: None COMPLICATIONS: None RADIATION DOSE: Total DLP: 470 mGy*cm Dose modulation, iterative reconstruction, and/or weight based adjustment of the mA/kV was utilized to reduce the radiation dose to as low as reasonably achievable. FINDINGS: LOWER THORAX: 11 mm anterior right middle lobe pulmonary nodule. HEPATOBILIARY: No focal liver lesions. No biliary ductal dilation. Unremarkable gallbladder. SPLEEN: No splenomegaly. PANCREAS: No focal masses or ductal dilatation. ADRENALS: No adrenal nodules. KIDNEYS/URETERS: 4 mm left distal ureteral calculus just proximal to the ureterovesical junction. No hydronephrosis. 3 mm nonobstructive right lower pole renal calculus. PELVIC ORGANS/BLADDER: Decompressed bladder. PERITONEUM / RETROPERITONEUM: No free air or fluid. LYMPH NODES: No lymphadenopathy. VESSELS: Unremarkable. GI TRACT: No abnormal bowel thickening. No bowel obstruction. BONES AND SOFT TISSUES: No acute osseous injury. No suspicious lytic or blastic lesions. IMPRESSION: 4 mm left distal ureteral calculus near the left ureterovesical junction. No associated hydronephrosis. 3 mm nonobstructive right lower pole renal calculus. 11 mm anterior right middle lobe pulmonary nodule may be infectious/inflammatory in this young patient. Recommend follow-up chest CT in 3 months to assess for resolution. Signed by: Nain Salinas MD on 03/14/2020 4:38 PM
[2020-03-14] MEDS ORDERED: CEFTRIAXONE SOD 1 GM VIAL IV ONE (16:45)
[2020-03-14] MEDS ORDERED: CEFTRIAXONE SOD 1 GM/NS 50 ML 50 ML IV ONE (16:45)
== END 2020-03-14 17:26 | disposition home or self-care (01) ==
LOC: ER 14:56
DX: M54.5 Low back pain (principal); R11.0 Nausea; N20.2 Calculus of kidney with calculus of ureter; R91.8 Other nonspecific abnormal finding of lung field
CPT/HCPCS: 36415; 74176; 80053; 81001; 81025; 85025; 87086; 87186; 99284; J0696; J1885; J2270; J2405; J7030

== ENCOUNTER → 2020-07-03 | Outpatient (CLI) | payer BC ==
--- NOTE | 2020-07-03 11:27 | Diagnostic Imaging Report ---
EXAM: CT Chest WITHOUT intravenous contrast 07/03/2020 10:00 AM INDICATION: COMPARISON: CT abdomen dated 03/14/2020 TECHNIQUE: Chest was scanned utilizing a multidetector helical scanner from the lung apex through the level of the adrenal glands without administration of IV contrast. Coronal and sagittal reformations were obtained. Routine protocol was performed. IV CONTRAST: None RADIATION DOSE: Total DLP: 229 mGy*cm. Dose modulation, iterative reconstruction, and/or weight based adjustment of the mA/kV was utilized to reduce the radiation dose to as low as reasonably achievable. COMPLICATIONS: None FINDINGS: LINES/ TUBES: None. LUNGS AND AIRWAYS: The lungs are unremarkable. There is a stable 10 mm inferior right middle lobe pleural-based nodule. No other suspicious pulmonary nodule or mass is identified. Negative for consolidation. PLEURA: The pleural spaces are clear. HEART AND MEDIASTINUM: The thyroid gland is normal. No mediastinal, hilar or axillary lymphadenopathy. The heart is normal in size.. There is no pericardial effusion. UPPER ABDOMEN: Unremarkable. BONES: Negative for acute intrathoracic process. SOFT TISSUES: Unremarkable. COMPARISON: None IMPRESSION: Stable anterior pleural-based 1 cm lobular inferior right middle lobe nodule. Recommend longer-term follow-up in 9 months to establish one-year stability. To reduce radiation dose the upper half of the chest can be excluded from the [id number]-fy-jdou on future follow-up. Signed by: Garfield Rodriguez MD on 07/03/2020 11:24 AM
== END ==
LOC: CT 09:34
PROVIDERS: ATTEND Internal Medicine
DX: R91.1 Solitary pulmonary nodule (principal)
CPT/HCPCS: 71250